=== PATIENT | male | born 1975 | race Caucasian/White ===

== ENCOUNTER → 2017-06-17 | Outpatient (CLI) | payer BC ==
[~2017-06-17] MED LIST: CIPR-255 PO; IBUP-1427 PO; LORA-741 PO; OXYC-643 PO; TEMA-79 PO
--- NOTE | 2017-06-24 08:38 | CODING QUERY MEDICAL NECESSITY ---
CQSUPPORTING DIAGNOSIS NEEDED A supporting diagnosis is required for the test/procedure performed on this patient in order for us to be reimbursed by the patient's insurance. Please provide a supporting diagnosis for the following test/procedure listed below next to the test name along with your signature. *If there is no additional diagnosis for this patient that would support the following test/procedure please document that below next to the test/procedure. Test(s)/Procedure(s) that require a supporting diagnosis: DOS 06/17/17 VITAMIN D TEST Provider Signature: Date: Thank you Adwoa Carrizales Health Information Management Once completed, please kindly fax back to [phone] For questions please call [phone]
== END | disposition home or self-care (01) ==
LOC: C.LABPVFM 12:24
PROVIDERS: ATTEND Nurse Practitioner
DX: R40.0 Somnolence (principal); E55.9 Vitamin D deficiency, unspecified

== ENCOUNTER → 2017-07-15 | Outpatient (CLI) | payer BC ==
[~2017-07-15] VITALS: Ht 175.3 cm; Wt 129.3 kg
[2017-07-15 09:40] VITALS: BP 146/99; PULSE 71; Ht 175.3 cm; Wt 129.3 kg
== END | disposition home or self-care (01) ==
LOC: C.NEUR 08:43
PROVIDERS: ATTEND Internal Medicine Pulmonary Disease
DX: G47.33 Obstructive sleep apnea (adult) (pediatric) (principal); F32.9 Major depressive disorder, single episode, unspecified; F41.9 Anxiety disorder, unspecified; R40.0 Somnolence; G47.00 Insomnia, unspecified; E55.9 Vitamin D deficiency, unspecified; Z87.891 Personal history of nicotine dependence

== ENCOUNTER → 2017-10-14 | Outpatient (CLI) | payer BC ==
[~2017-10-14] VITALS: Ht 175.3 cm; Wt 129.5 kg
[2017-10-14 08:36] VITALS: BP 141/86; PULSE 79; Ht 175.3 cm; Wt 129.5 kg
== END | disposition home or self-care (01) ==
LOC: C.NEUR 08:00
PROVIDERS: ATTEND Internal Medicine Pulmonary Disease
DX: G47.33 Obstructive sleep apnea (adult) (pediatric) (principal)

== ENCOUNTER 2023-04-05 13:54 | Inpatient (IN) ==
--- NOTE | 2023-04-05 14:07 | ED Triage Note ---
Date of Service April 05, 2023 History of Present Illness This patient was briefly evaluated while in triage. An abbreviated physical exam was performed. This patient is a 47-year-old Male who returns to the ED for evaluation of ongoing lower back pain radiating into the left leg to the foot. The patient is scheduled for 04/23 for injections in his back by Dr. Kendrick in [place]. Patient denies any bladder/bowel incontinence, saddle anesthesias or foot drop. The patient rates his discomfort 10 out of 10. The patient has been taking gabapentin, Motrin and Tylenol without relief. Physical Exam CONSTITUTIONAL: Healthy and well nourished. Patient appears in moderate discomfort. MUSCULOSKELETAL: Patient has generalized tenderness to palpation through the lower lumbar spine and into the left sciatic notch/SI joint. Patient ambulates with an antalgic gait. PSYCHIATRIC: Positive affect. Initial orders for labs and / or imaging were placed and patient was placed in the waiting area until a bed is available. Please see further documentation for the full ED course.
--- NOTE | 2023-04-05 14:34 | Emergency Department Note ---
Impression & Plan Acute left lumbar radiculopathy, Intractable low back pain ED Provider Note CHIEF COMPLAINT: Uncontrolled low back pain radiating into the leg x3 months HISTORY OF PRESENT ILLNESS: Patient is a 47-year-old male with past medical history significant for chronic low back pain and sleep apnea, who returns the emergency department for continued and worsening radicular low back pain. Patient has a history of chronic low back pain. He has been experiencing an exacerbation of his low back pain over the last 3 months. He has been seen by his primary care provider for this on several occasions. He had an MRI in December of this year noting left lateral disc bulge at the L4-L5 level with impingement of the L4 nerve root. He has been in physical therapy. He has been trialed on multiple medications including narcotics, muscle relaxers, gabapentin and steroids has been seen by pain management, Dr. Kendrick, in [place], and has had some trigger point injections in the thoracic spine. He is scheduled for an DAVID but not until 04/23. He has been getting worse over the last 1 to 2 weeks and even more so in the last few days. It is to the point now that he cannot walk. He rates his pain a 9/10. He was seen and thoroughly evaluated in our emergency department yesterday evening. He was discharged at 1999. He states that he felt fine at discharge because the pain medications were still working but when they wore off his pain was back to where it was. He states the pain is located in the left low back, radiating into the buttocks, around to the lateral aspect of the hip and down the left leg into his calf. It does not go into the foot currently. He reports weakness in the leg and a sense of buckling. He denies any bowel or bladder incontinence or saddle anesthesias. He tried getting in with pain management sooner, but has been unsuccessful. REVIEW OF SYSTEMS: Review of systems as per HPI. All other systems reviewed were negative. 10 systems reviewed. PMH: External medical records are reviewed and summarized as above/below. See Problem List. SOCIAL HISTORY: Patient lives at home. Employed. PHYSICAL EXAM: Vital Signs: Reviewed Nurse's notes. CONSTITUTIONAL: Patient is an uncomfortable appearing 47-year-old male who is awake and alert and sitting gingerly on the edge of the gurney. There is moderate discomfort with position changes. CARDIOVASCULAR: Regular rate and rhythm. Peripheral pulses easily palpable. RESPIRATORY: Breath sounds equal and clear to auscultation. ABDOMEN: Bowel sounds are present. Abdomen is soft, nontender and nondistended. INTEGUMENTARY: No lesions or rash, normal skin turgor. LYMPH: No lymphadenopathy. SPINE: Examination of the patient's back does not demonstrate any ecchymosis, abrasions or outward signs of trauma. No erythema, increased warmth or induration. Patient has midline discomfort to palpation over the low lumbar spine, primarily on the left extending out the PSIS on the left and into the left buttock. There is no pain over the SI joint or the sciatic notch. He has increased pain with range of motion including rotation and flexion. EXTREMITIES: Leg lengths are symmetrical. Negative logroll bilaterally. He has 4/5 strength to plantarflexion of the left toe and ankle compared to 5/5 on the right. 5/5 strength of dorsi-flexion of the great toes and ankles and flexion and extension of the knees and flexion of the hips. Positive left-sided straight leg raise testing. Lower extremity DTRs are 1+ bilaterally. Distal pulses are easily palpable. Sensation light touch is intact over the lower extremities bilaterally. EMERGENCY DEPARTMENT COURSE: The patient was seen and assessed as above. External medical records were reviewed. Patient returns the emergency department for uncontrolled radicular left low back pain. He has an MRI documenting nerve root impingement in the L4 level. When he was seen in the ED yesterday, he was offered admission for evaluation and inpatient care versus a trial of home and he elected the latter. He has not even made a 24 hours and is now back in the emergency department. Of note, he was not prescribed any pain medication or steroids at discharge yesterday. Patient and his significant other feel that he cannot manage at home and he was now like to consider being evaluated as an inpatient. IV lock was initiated. Patient's blood work from yesterday was reviewed as well as CT scan imaging and MRI from December. The patient's outside pain management notes were also reviewed. He was treated with IV Toradol, Zofran and morphine x2 doses. Consultation was placed for admission/observation for further care of his pain. The patient was discussed with Dr. Valdovinos with the [facility]. They will evaluate the patient. Past Med/Surg History Medical History GERD (gastroesophageal reflux disease) Osteoarthritis Sleep apnea currently not using CPAP as ordered Spider bite Surgical History History of tonsillectomy History of umbilical hernia repair Family History Grandmother Family history of diabetes mellitus Social History Smoking Status: Former smoker Tobacco Type: Smokeless Tobacco (Dip or Chew) Second Hand Exposure: Yes (father smoked); Do You Dip or Chew Tobacco: Yes; Hx Alcohol Use: Yes Alcohol type: beer, wine and hard liquor Hx Substance Use: No Preferred Language: Italian Communication Ability: Effective Sap Abap Developer Required: No Beliefs That Will Affect Care: None marital status: Single Current Living Situation: Significant Other current occupational status: employed How many Children do You have: 0 Feels Safe at Home: Yes Childhood Exposure to Second-Hand Smoke: Yes Diet: regular caffeine: Yes Physical Activity Frequency: Daily Seatbelt Use: always Sunscreen Use: No Assistive Devices: CPAP and Glasses Allergies Allergies Allergy/AdvReac Type Severity Reaction Status Date / Time No Known Allergies Allergy Verified 04/05/23 16:27 Home Meds Home Medications Medication Instructions Recorded Confirmed lidocaine 5 % topical patch 1 patch topical DAILY PRN Pain 01/08/23 04/05/23 diazepam 10 mg tablet See Rx Instructions .Route 04/04/23 04/05/23 .COMPLEX PRN 1 HR. PRIOR TO DOCTOR OFFICE VISIT gabapentin 100 mg capsule 200 mg PO BID 04/04/23 04/05/23 naproxen sodium 220 mg tablet 440 mg PO Q8H 04/05/23 04/05/23 (Aleve) tizanidine 4 mg tablet 4 mg PO Q6H PRN MUSCLE SPASMS 04/05/23 04/05/23 Results & Data (ED) Vital Signs Vital Signs - 24 hr 04/05/23 14:03 04/05/23 14:56 Temperature 36.8 C Temperature Source Temporal Artery Scan Pulse Rate 98 H Pulse Rate [Right Apical] 92 H Respiratory Rate 18 18 Respiratory Effort / Characteristics Non-Labored Spontaneous Respiratory Depth Normal Respiratory Pattern Regular Blood Pressure 146/63 H Blood Pressure [Left Arm] 146/86 H Blood Pressure Mean 90 Blood Pressure Mean [Left Arm] 106 Pulse Oximetry 97 96 Oxygen Delivery Method Room Air Room Air Sepsis Recent Fever Within 48 Hours No Sepsis New/Unexplained Change in Mental Status No Sepsis Action Taken by Nursing No Action Required Home Medications Current Medication List: was personally reviewed by me Laboratory Data Attestation: I reviewed the patient's lab results. Lab Results 04/05/23 Range/Units 14:49 SARS-CoV-2, RNA, NAAT NEGATIVE (NEGATIVE) Administered Medications Discontinued Medications Ketorolac Tromethamine (Ketorolac Tromethamine 15 Mg/Ml Vial) 15 mg IV NOW STA Stop: 04/05/23 14:39 Last Admin: 04/05/23 15:45 Dose: 15 mg Documented By: DANITA Morphine Sulfate (Morphine Sulfate 4 Mg/Ml 1 Ml Carp\Vial) 4 mg IV NOW STA Stop: 04/05/23 14:39 Last Admin: 04/05/23 15:45 Dose: 4 mg Documented By: DANITA Morphine Sulfate (Morphine Sulfate 10 Mg/Ml Carp/Vial) 6 mg IV NOW STA Stop: 04/05/23 15:52 Last Admin: 04/05/23 16:04 Dose: 6 mg Documented By: DANITA Morphine Sulfate (Morphine Sulfate 4 Mg/Ml 1 Ml Carp\Vial) Confirm Administered Dose 4 mg .ROUTE .STK-MED ONE Stop: 04/05/23 16:01 Last Admin: 04/05/23 16:04 Dose: Not Given Documented By: DANITA Morphine Sulfate (Morphine Sulfate 2 Mg/Ml Carp) Confirm Administered Dose 2 mg .ROUTE .STK-MED ONE Stop: 04/05/23 16:01 Last Admin: 04/05/23 16:05 Dose: Not Given Documented By: DANITA Ondansetron HCl (Ondansetron Inj 2 Mg/Ml 2 Ml Vial) 4 mg IV NOW STA Stop: 04/05/23 14:39 Last Admin: 04/05/23 15:45 Dose: 4 mg Documented By: DANITA Prescription Drug Monitoring [place] Drug Monitoring Program reviewed and no issues identified Discharge Plan Visit Data Chief Complaint: Back Injury/Pain Stated Complaint: LOWER BACK INTO LEG PAIN ED Provider: Guillermo Nicole ED Midlevel Provider: Sriram Perez Discharge Problem: Acute left lumbar radiculopathy, Intractable low back pain Patient Disposition: Being Evaluated by Hospitalist Forms Stand Alone Forms: My [facility] Prescriptions Prescriptions: No Action lidocaine 5 % adhesive patch,medicated 1 patch topical DAILY PRN (Reason: Pain) Rx Instructions: leave on most painful area for up to 12 hrs gabapentin 100 mg capsule 200 mg PO BID diazepam 10 mg tablet See Rx Instructions .ROUTE .COMPLEX PRN (Reason: 1 HR. PRIOR TO DOCTOR OFFICE VISIT) Rx Instructions: Take 1 tablet by mouth 1 hour prior to procedure. tizanidine 4 mg tablet 4 mg PO Q6H PRN (Reason: MUSCLE SPASMS) naproxen sodium [Aleve] 220 mg Tablet 440 mg PO Q8H Referrals Referrals: Che Petersen CRNP [Primary Care Provider] -
[2023-04-05] MEDS ORDERED: MoRPHine SULFATE 4 MG/ML 1 ML CARP\\VIAL IV STA (14:38)
[2023-04-05] MEDS ORDERED: ONDANSETRON INJ 2 MG/ML 2 ML VIAL IV STA (14:38)
[2023-04-05] MEDS ORDERED: KETOROLAC TROMETHAMINE 15 MG/ML VIAL IV STA (14:38)
[2023-04-05] MEDS ORDERED: MoRPHine SULFATE 10 MG/ML CARP/VIAL IV STA (15:51)
[2023-04-05] MEDS ORDERED: MoRPHine SULFATE 2 MG/ML CARP ONE (16:00)
[2023-04-05] MEDS ORDERED: MoRPHine SULFATE 4 MG/ML 1 ML CARP\\VIAL ONE (16:00)
--- NOTE | 2023-04-05 17:08 | History & Physical Report ---
Date of Service April 05, 2023 Assessment & Plan (1) Lumbar radiculopathy: Plan: Acetaminophen 1g PO TID. Toradol 30mg IV q6h (for 2 days). oxycodone 1st line, morphine 2nd line for breakthrough pain. Gabapentin 300mg TID. Could consider short course of steroids but given he is now having weakness he is potentially a surgical candidate therefore steroids deferred Discussed with Dr Acosta - requested up to date MRI and will review patient tomorrow. Will keep NPO after midnight with the slim chance he may need surgery tomorrow. (2) Sleep apnea: Plan: Intolerant to CPAP Plan VTE Prophyaxis - low risk Diet - regular, NPO after midnight Disposition - observation status to med/surg Admission and Anticipated Discharge Date Admission Date: April 05, 2023 History of Present Illness Chief Complaint: Back pain Primary Care Provider: DEE DEE Simms Ezekiel Lomeli is a 47 year old male who presents to the ER with low back back radiating down left leg. Initial injury occurred about 2 months ago after picking up a log while his foot was stuck in a hole and twisted. Initially he just had pain in his back but over the last week and much more over the last three days it has been radiating down his left leg and much more severe. He has continued to work and is on concrete a lot during the day. Now having difficulty walking due to the pain. Current severity 9/10. Radiates down left thigh, then lateral calf down to ankle. Worse on standing up. He has a pain management appointment on April 23. Stopped taking Aleve on Wednesday as he was told he was going to get steroids that were never called in. Had Solu-medrol yesterday however in the ER. Continues with lidocaine patch and gabapentin. After coming ot the ER yesterday he felt better until this morning when all the pain medication wore off and he was unable to get out of bed therefore returned to the ER today. Allergies Allergy/AdvReac Type Severity Reaction Status Date / Time No Known Allergies Allergy Verified 04/05/23 16:27 Home Medications Medication Instructions Recorded Confirmed Type lidocaine 5 % topical patch 1 patch topical DAILY PRN Pain 01/08/23 04/05/23 History diazepam 10 mg tablet See Rx Instructions .Route 04/04/23 04/05/23 History .COMPLEX PRN 1 HR. PRIOR TO DOCTOR OFFICE VISIT gabapentin 100 mg capsule 200 mg PO BID 04/04/23 04/05/23 History naproxen sodium 220 mg tablet 440 mg PO Q8H 04/05/23 04/05/23 History (Aleve) tizanidine 4 mg tablet 4 mg PO Q6H PRN MUSCLE SPASMS 04/05/23 04/05/23 History Past Med/Surg History Medical History GERD (gastroesophageal reflux disease) Osteoarthritis Sleep apnea currently not using CPAP as ordered Spider bite Surgical History History of tonsillectomy History of umbilical hernia repair Family History Grandmother Family history of diabetes mellitus maternal Social History Smoking Status: Former smoker Tobacco Type: Smokeless Tobacco (Dip or Chew) Second Hand Exposure: Yes (father smoked); Do You Dip or Chew Tobacco: Yes; Hx Alcohol Use: Yes Alcohol type: beer, wine and hard liquor Hx Substance Use: No Preferred Language: Japanese Communication Ability: Effective [employer] Product Consultant Required: No Beliefs That Will Affect Care: None marital status: Single Current Living Situation: Significant Other current occupational status: employed How many Children do You have: 0 Feels Safe at Home: Yes Childhood Exposure to Second-Hand Smoke: Yes Diet: regular caffeine: Yes Physical Activity Frequency: Daily Seatbelt Use: always Sunscreen Use: No Assistive Devices: CPAP and Glasses Review of Systems Review of Systems: All systems reviewed & are unremarkable except as noted in HPI & below Physical Exam Constitutional: WD/WN, vitals as above Eyes: + anicteric sclerae; normal pupil size ENMT: external ear and nose normal, oropharynx normal Neck: trachea midline, no thyromegaly Respiratory: normal respiratory effort, lungs clear to auscultation Cardiovascular: RRR, no murmur, no edema Gastrointestinal (Abdomen): normal bowel sounds, soft, nontender, no hepatosplenomegaly Skin: no rashes, warm and dry Neurologic: moves all extremities, + focal motor deficit (see below) and awake; not confused Motor/Sensory: no sensory deficit No right lower extremity weakness 5/5 throughout Left hip flex limited by pain, knee flex/ext limited by pain, left ankle dorsiflex 4/5, plantarflex 4+/5 Knee reflex unable to illicit b/l Psychiatric: A+Ox3, euthymic affect Results & Data Results & Data Vital Signs (Past 12 Hours) Vital Signs Temp Pulse Pulse Resp BP BP Pulse Ox 04/05/23 14:56 92 H 18 146/86 H 96 04/05/23 14:03 36.8 C 98 H 18 146/63 H 97 O2 Del Method 04/05/23 14:56 Room Air 04/05/23 14:03 Room Air Laboratory Results None Diagnostic Findings None Medications Administered ER Medications Given: Toradol 15mg IV Morphine 4mg IV Ondansetron 4mg IV Morphine 6mg IV Code Status & VTE Plan Code Status Full PG Care Time/CCT Total # of Minutes Spent Total Time Spent with Patient: Total time spent is greater than 50% in coordination of care (as documented) at patient's floor/unit and/or counseling patient: Coding Level of Care Code 13116 INT INP/OBS CARE 2/55MIN Diagnoses Lumbar radiculopathy M54.16 Sleep apnea G47.30
[2023-04-05] MEDS ORDERED: ACETAMINOPHEN 500 MG TAB PO STA (17:25)
[2023-04-05 17:36] LABS: Basophils # (auto) 0.02 K/uL (0-0.2); Basophils % (auto) 0.1 %; Eosinophils # (auto) 0.03 K/uL (0-0.50); Eosinophils % (auto) 0.2 %; Hemoglobin 14.3 g/dl (14.0-18.0); Immature Granulocytes # (auto) 0.06 K/uL (0.01-0.20); Immature Granulocytes % (auto) 0.3 %; Lymphocytes # (auto) 2.11 K/uL (1.2-3.4); Lymphocytes % (auto) 10.7 %; Mean Corpuscular Hemoglobin 31.7 pg (25.0-34.0); Mean Corpuscular Hgb Conc 34.9 g/dL (32.0-36.0); Mean Corpuscular Volume 90.9 fL (80.0-100.0); Mean Platelet Volume 11.5 fL (9.4-12.4); Monocytes # (auto) 2.07 K/uL (0.11-0.59); Monocytes % (auto) 10.5 %; Neutrophils # (auto) 15.36 K/uL (1.40-6.50); Neutrophils % (auto) 78.2 %; Platelet Count 249 K/uL (130-400); RDW Coefficient of Variation 12.7 % (11.5-14.5); Red Blood Count 4.51 M/uL (4.70-6.10); White Blood Count 19.65 K/ul (4.8-10.8)
[2023-04-05 17:51] LABS: Calcium 9.4 mg/dl (8.6-10.3); Creatinine Clr Calc Pharmacy 115.9 ml/min; Est GFR (African American) 104.9 ml/min; Est GFR (Non-African American) 90.5 ml/min; Magnesium 1.9 mg/dl (1.7-2.4); Potassium 3.8 mmol/L (3.5-5.1)
[2023-04-05] MEDS: ACETAMINOPHEN 500 MG TAB PO SCH (19:49)
[2023-04-05] MEDS: oxyCODONE HCL IR 5 MG TAB (IMMEDIATE RELEASE) PO PRN (19:51)
--- NOTE | 2023-04-05 21:57 | Magnetic Resonance Report ---
Exam(s): MRI L SPINE Without Contrast EXAM: MR Lumbar Spine Without Intravenous Contrast CLINICAL HISTORY: Reason for exam: L4 radiculopathy, significantl worse since Dec MRI. TECHNIQUE: Magnetic resonance images of the lumbar spine without intravenous contrast in multiple planes. COMPARISON: 01/20/2023. FINDINGS: Vertebrae: The disc height throughout the lumbar vertebral bodies is well preserved. No acute fracture. Normal lumbar lordosis. Normal alignment of the lumbar vertebral bodies. Spinal cord: The spinal cord terminates at approximate T12-L1 with normal signal in the visualized portion. DISCS/SPINAL CANAL/NEURAL FORAMINA: T12-L1: Mild disc desiccation at T12-L1, L4-L5 and L5-S1. Narrowing of disc height at T12-L1. L1-L2: Unremarkable. No significant disc disease. No stenosis. L2-L3: Unremarkable. No significant disc disease. No stenosis. L3-L4: Unremarkable. No significant disc disease. No stenosis. L4-L5: Redemonstrated is focal disc bulge over the left intervertebral foramen and abutting the exiting left L4 nerve root. No spinal stenosis. L5-S1: Mild disc desiccation. No spinal stenosis. No focal disc bulge or herniation. IMPRESSION: 1. Redemonstrated is disc bulge over the left intervertebral foramina at L4-L5 abutting the exiting left L4 nerve root with possible impingement. 2. No spinal stenosis. Electronically signed by: Veena Fitzgerald MD 04/05/23 21:55 PM
[2023-04-05] MEDS: KETOROLAC 30 MG/ML VIAL IV SCH (22:33)
[2023-04-06] MEDS: oxyCODONE HCL IR 5 MG TAB (IMMEDIATE RELEASE) PO PRN ×2 (00:24→07:50)
[2023-04-06] MEDS: MELATONIN 3 MG TAB PO PRN ×2 (00:52→21:07)
[2023-04-06] MEDS: MoRPHine SULFATE 4 MG/ML 1 ML CARP\\VIAL IV PRN ×2 (01:51→21:08)
[2023-04-06] MEDS: LACTATED RINGER'S 1,000 ML IV SCH ×2 (01:51→10:26)
[2023-04-06] MEDS: KETOROLAC 30 MG/ML VIAL IV SCH ×4 (04:10→20:03)
[2023-04-06 07:49] LABS: Hematocrit (blood only) 39.4 % (42.0-52.0); Hemoglobin 13.4 g/dl (14.0-18.0); Mean Corpuscular Hemoglobin 31.1 pg (25.0-34.0); Mean Corpuscular Volume 91.4 fL (80.0-100.0); Mean Platelet Volume 11.7 fL (9.4-12.4); Platelet Count 221 K/uL (130-400); RDW Coefficient of Variation 13.2 % (11.5-14.5); RDW Standard Deviation 44.1 fL (36.4-46.3); Red Blood Count 4.31 M/uL (4.70-6.10); White Blood Count 11.36 K/ul (4.8-10.8)
[2023-04-06] MEDS: ACETAMINOPHEN 500 MG TAB PO SCH ×3 (07:49→20:03)
[2023-04-06 07:50] LABS: BUN Creatinine Ratio 18.2 (10-20); Calcium 8.5 mg/dl (8.6-10.3); Creatinine Clr Calc Pharmacy 117.1 ml/min; Est GFR (African American) 106.2 ml/min; Est GFR (Non-African American) 91.6 ml/min; Potassium 3.7 mmol/L (3.5-5.1)
[2023-04-06] MEDS: GABAPENTIN 300 MG CAP PO SCH ×3 (07:50→20:02)
--- NOTE | 2023-04-06 08:36 | Orthopedic Consultation ---
Date of Consultation April 06, 2023 Assessment & Plan (1) Lumbar disc herniation with radiculopathy: MRI lumbar spine from yesterday does continue to demonstrate L4-L5 foraminal disc herniation on the left. This is concordant with his symptom complex and presentation. At length discussion at today with the patient reviewing his MRI findings and clinical course. He is very concerned regarding his work status. He is limited with his ability continue physical therapy and ability to take time off of work. He does not have short-term disability. He would like to pursue injections if possible to allow him to return to work. He understands if these fail to provide any significant long-term relief we may have to revisit possible surgical intervention. At this point he would like to postpone surgery for as long as possible. We will ask interventional pain management to see him and hopefully perform an injection as soon as possible. History of Present Illness Reason for Consultation: Left leg pain and weakness Attending Physician: Edgar Samuels History of Present Illness This is a 47-year-old male has had significant back pain now rating to left lower extremity since December. He is undergone a course of physical therapy. He was scheduled for an epidural injection in late March. He presents yesterday with marked decline in status with worsening left leg pain and weakness. Describes the symptoms involving left buttock left posterior thigh radiating down to the knee and anterior tibia to the ankle. He states he is able to walk but is very painful. Is been unable to work. The right lower extremity is asymptomatic. Allergies Allergy/AdvReac Type Severity Reaction Status Date / Time No Known Allergies Allergy Verified 04/05/23 16:27 Home Medications Medication Instructions Recorded Confirmed Type lidocaine 5 % topical patch 1 patch topical DAILY PRN Pain 01/08/23 04/05/23 History diazepam 10 mg tablet See Rx Instructions .Route 04/04/23 04/05/23 History .COMPLEX PRN 1 HR. PRIOR TO DOCTOR OFFICE VISIT gabapentin 100 mg capsule 200 mg PO BID 04/04/23 04/05/23 History naproxen sodium 220 mg tablet 440 mg PO Q8H 04/05/23 04/05/23 History (Aleve) tizanidine 4 mg tablet 4 mg PO Q6H PRN MUSCLE SPASMS 04/05/23 04/05/23 History Patient History Medical History GERD (gastroesophageal reflux disease) Osteoarthritis Sleep apnea currently not using CPAP as ordered Spider bite Surgical History History of tonsillectomy History of umbilical hernia repair Family History Grandmother Family history of diabetes mellitus maternal Social History Smoking Status: Former smoker Tobacco Type: Smokeless Tobacco (Dip or Chew) Second Hand Exposure: Yes (father smoked); Do You Dip or Chew Tobacco: Yes; Hx Alcohol Use: Yes Alcohol type: beer, wine and hard liquor Hx Substance Use: No Preferred Language: German Communication Ability: Effective Water Service Dispatcher Required: No Beliefs That Will Affect Care: None marital status: Single Current Living Situation: Significant Other current occupational status: employed How many Children do You have: 0 Feels Safe at Home: Yes Childhood Exposure to Second-Hand Smoke: Yes Diet: regular caffeine: Yes Physical Activity Frequency: Daily Seatbelt Use: always Sunscreen Use: No Assistive Devices: CPAP and Glasses Physical Exam Physical Exam: On exam patient is lying in bed. He has evidence of a 5 or 5 right extensor hallucis longus dorsiflexion plantarflexion quadriceps. The left he has a 4/5 left dorsiflexion quadriceps. Sensory appears to be symmetric. Deep tendon reflexes are diminished. Results & Data Vital Signs (Past 12 Hours) Vital Signs Temp Pulse Resp BP Pulse Ox O2 Del Method 04/06/23 07:45 36.3 C L 62 18 116/75 94 Room Air 04/05/23 21:23 36.4 C L 75 18 155/91 H 95 Room Air
[2023-04-06] MEDS ORDERED: predniSONE 20 MG TAB PO STA (14:46)
--- NOTE | 2023-04-06 14:49 | Pain Management Consultation ---
Date of Consultation April 06, 2023 Assessment & Plan (1) Lumbar disc herniation with radiculopathy: Plan 1. Patient was given 40mg PO prednisone now. 2. Discussed discharge to home tomorrow. 3. Recommend discharge to home with Medrol Wei, Oxycodone. 4. We are able to accommodate a left L4-5 transforaminal epidural steroid injection on 04/14/23 at 1300 which is next available. 5. Continue gabapentin 300 mg 3 times daily. 6. Made aware that he cannot participate in two different pain management facilities doing injections on him. History of Present Illness Attending Physician: Edgar Samuels History of Present Illness Mr. Lomeli is a 47-year-old male with lumbar radiculopathy x2 months. Patient states that the pain started after he was picking up a log and his foot got stuck in a hole and twisted. The pain was primarily in the low back but over the last 3 days he has now developed radicular symptoms down the lateral aspect of the left leg. He describes an aching, sharp shooting pain to the ankle. Pain is aggravated with standing and walking, improved with sitting and lying supine. Pain is rated 2/10 at its best and 9/10 at its worst. He did try physical therapy, Tylenol, ibuprofen, ice, heat without improvement. He was in the emergency department on 04/04/2023 and subsequently admitted on another emergency visit on 06/05/2023. He states that the left leg is weaker than the right. He is currently receiving Toradol 30 mg every 6 hours, Tylenol 1 g 3 times daily, gabapentin 300 mg 3 times daily, oxycodone 10 mg every 4 hours, and IV morphine 4 mg if needed for breakthrough pain which she has required once last night. Patient has been working up with [facility] pain management and was to be scheduled for an injection on 04/23/2023. Patient has called into their office but that there is nothing further they can offer until the injection. No bowel/bladder incontinence, saddle anesthesia, foot drop. Case discussed with Dr. Zina Guadalupe Allergies Allergy/AdvReac Type Severity Reaction Status Date / Time No Known Allergies Allergy Verified 04/05/23 16:27 Home Medications Medication Instructions Recorded Confirmed Type lidocaine 5 % topical patch 1 patch topical DAILY PRN Pain 01/08/23 04/05/23 History diazepam 10 mg tablet See Rx Instructions .Route 04/04/23 04/05/23 History .COMPLEX PRN 1 HR. PRIOR TO DOCTOR OFFICE VISIT gabapentin 100 mg capsule 200 mg PO BID 04/04/23 04/05/23 History naproxen sodium 220 mg tablet 440 mg PO Q8H 04/05/23 04/05/23 History (Aleve) tizanidine 4 mg tablet 4 mg PO Q6H PRN MUSCLE SPASMS 04/05/23 04/05/23 History Patient History Medical History GERD (gastroesophageal reflux disease) Osteoarthritis Sleep apnea currently not using CPAP as ordered Spider bite Surgical History History of tonsillectomy History of umbilical hernia repair Family History Grandmother Family history of diabetes mellitus maternal Social History Smoking Status: Current every day smoker Tobacco Type: Smokeless Tobacco (Dip or Chew) Second Hand Exposure: Yes (father smoked); Do You Dip or Chew Tobacco: Yes; Hx Alcohol Use: Yes Alcohol type: beer, wine and hard liquor Hx Substance Use: No Preferred Language: Kosovan Communication Ability: Effective Certified Breastfeeding Educator Required: No Beliefs That Will Affect Care: None marital status: Single Current Living Situation: Significant Other current occupational status: employed How many Children do You have: 0 Feels Safe at Home: Yes Childhood Exposure to Second-Hand Smoke: Yes Diet: regular caffeine: Yes Physical Activity Frequency: Daily Seatbelt Use: always Sunscreen Use: No Assistive Devices: None Physical Exam Physical Exam: GENERAL: This is a 47 year old male that does not appear in any acute distress. Obese and physically deconditioned. HEAD/FACE: Normocephalic and atraumatic. EYES: No drainage or conjunctival injection. ENT: Nose without bleeding or discharge. Oral mucosa moist. RESPIRATORY: Patient with unlabored breathing. No signs of respiratory distress. CHEST/AXILLA: Chest movement symmetrical. No deformities noted. BACK: Full range of motion. There is focal tenderness along the left L4-L5 region. No SI joint tenderness. No myofascial spasm or trigger points noted. SKIN: [place], warm and dry. No rash noted. MS/EXTREMITY: 4/5 strength of the bilateral lower extremities. Positive straight leg raise on the left, negative on the right. NEURO: Alert and appears oriented. Speech is fluent. Cranial Nerves are grossly intact. PSYCH: Alert, pleasant, affect is calm Results (Pain Clinic) Diagnostic Review MRI Findings: Exam(s): MRI L SPINE Without Contrast EXAM: MR Lumbar Spine Without Intravenous Contrast CLINICAL HISTORY: Reason for exam: L4 radiculopathy, significantl worse since Dec MRI. TECHNIQUE: Magnetic resonance images of the lumbar spine without intravenous contrast in multiple planes. COMPARISON: 01/20/2023. FINDINGS: Vertebrae: The disc height throughout the lumbar vertebral bodies is well preserved. No acute fracture. Normal lumbar lordosis. Normal alignment of the lumbar vertebral bodies. Spinal cord: The spinal cord terminates at approximate T12-L1 with normal signal in the visualized portion. DISCS/SPINAL CANAL/NEURAL FORAMINA: T12-L1: Mild disc desiccation at T12-L1, L4-L5 and L5-S1. Narrowing of disc height at T12-L1. L1-L2: Unremarkable. No significant disc disease. No stenosis. L2-L3: Unremarkable. No significant disc disease. No stenosis. L3-L4: Unremarkable. No significant disc disease. No stenosis. L4-L5: Redemonstrated is focal disc bulge over the left intervertebral foramen and abutting the exiting left L4 nerve root. No spinal stenosis. L5-S1: Mild disc desiccation. No spinal stenosis. No focal disc bulge or herniation. IMPRESSION: 1. Redemonstrated is disc bulge over the left intervertebral foramina at L4-L5 abutting the exiting left L4 nerve root with possible impingement. 2. No spinal stenosis. Electronically signed by: Veena Fitzgerald MD 04/05/23 21:55 PM
--- NOTE | 2023-04-06 21:57 | Hospitalist Progress Note ---
Date of Service April 06, 2023 Assessment & Plan (1) Lumbar radiculopathy: Plan: Acetaminophen 1g PO TID. Toradol 30mg IV q6h (for 2 days). oxycodone 1st line, morphine 2nd line for breakthrough pain. Gabapentin 300mg TID. Could consider short course of steroids but given he is now having weakness he is potentially a surgical candidate therefore steroids deferred Discussed with Dr Acosta - patient does not want surgery as he has a disc herniaton that is causing his symptoms. Patient is interested in an injection and will consult pain management. (2) Sleep apnea: Plan: Intolerant to CPAP Plan VTE Prophyaxis - low risk Admission and Anticipated Discharge Date Admission Date: April 06, 2023 Subjective 47 yo male reports having pain in his back that radiates down his leg. He reports he does not want surgery as he does not want to be off work. He is asking for an injection. Review of Systems Review of Systems: All systems reviewed & are unremarkable except as noted in HPI & below Physical Exam Physical Exam: Constitutional: WD/WN, vitals as above Respiratory: normal respiratory effort, lungs clear to auscultation Cardiovascular: RRR, no murmur, no edema Gastrointestinal (Abdomen): normal bowel sounds, soft, nontender, no hepatosplenomegaly Skin: no rashes, warm and dry Neurologic: moves all extremities, + focal motor deficit (see below) and awake; not confused Motor/Sensory: no sensory deficit No right lower extremity weakness 5/5 throughout left ankle dorsiflex 4/5, plantarflex 4+/5 Psychiatric: A+Ox3, euthymic affect Results & Data Results & Data Vital Signs (Past 12 Hours) Vital Signs Temp Pulse Pulse Resp BP Pulse Ox O2 Del Method 04/06/23 19:58 36.8 C 74 16 137/89 96 Room Air 04/06/23 15:01 73 16 133/76 94 Room Air PG Care Time/CCT Total # of Minutes Spent Total Time Spent with Patient: Total time spent is greater than 50% in coordination of care (as documented) at patient's floor/unit and/or counseling patient: Coding Level of Care Code 49231 SUB INP/OBS CARE 2/35MIN Diagnoses Lumbar radiculopathy M54.16 Sleep apnea G47.30
[2023-04-07] MEDS: oxyCODONE HCL IR 5 MG TAB (IMMEDIATE RELEASE) PO PRN (02:15)
[2023-04-07] MEDS: KETOROLAC 30 MG/ML VIAL IV SCH ×3 (03:35→16:49)
[2023-04-07] MEDS ORDERED: POLYETHYLENE (MIRALAX) 17 GM PACK PO PRN (06:11)
[2023-04-07] MEDS ORDERED: DOCUSATE SODIUM/SENNA 50/8.6MG TAB PO PRN (06:11)
[2023-04-07] MEDS ORDERED: SOD PHOSPHATE/SOD BIPHOSPHATE ENEMA 132 ML BTL PR PRN (06:11)
[2023-04-07] MEDS ORDERED: GLYCERIN ADULT 12 SUPP/BOX SUPP PR PRN (06:11)
[2023-04-07] MEDS: ACETAMINOPHEN 500 MG TAB PO SCH ×2 (08:58→14:46)
[2023-04-07] MEDS: GABAPENTIN 300 MG CAP PO SCH ×2 (09:00→14:47)
[2023-04-07] MEDS ORDERED: predniSONE 20 MG TAB PO STA (14:29)
== END 2023-04-07 18:02 | disposition home or self-care (01) | DRG 552 ==
LOC: ED 13:54 → 3W 13:54 → SUATTDRO 17:36 → 3W 18:20

== ENCOUNTER 2023-06-09 08:13 | Inpatient (IN) ==
--- NOTE | 2023-05-26 13:17 | PAT Medication Instructions ---
Medication Instructions Date of Service May 26, 2023 Home Medications Medication Instructions Recorded lidocaine 5 % topical patch 1 patch topical DAILY PRN Pain #14 04/07/23 ea sennosides 8.6 mg-docusate sodium 1 tab PO QAM PRN constipation #30 04/07/23 50 mg tablet (Senokot-S) tabs gabapentin 300 mg capsule 900 mg PO TID #180 caps 04/30/23 oxycodone 5 mg tablet 5 - 10 mg PO Q6H PRN moderate pain 04/30/23 (scale score 5-6) #45 tabs Medication List: tizanidine 4 mg tablet 4 mg PO Q6H PRN MUSCLE SPASMS lidocaine 5 % topical patch 1 patch topical DAILY PRN Pain sennosides 8.6 mg-docusate sodium 50 mg tablet (Senokot-S) 1 tab PO QAM PRN constipation gabapentin 300 mg capsule 900 mg PO TID oxycodone 5 mg tablet 5 - 10 mg PO Q6H PRN moderate pain acetaminophen 500 mg tablet 1,000 mg PO Q6H PRN Pain MEDICATION INSTRUCTIONS: Continue as directed lidocaine 5 % topical patch 1 patch topical DAILY PRN Pain (do not apply near surgical area or after bathing prior to surgery) DO NOT take the morning of surgery tizanidine 4 mg tablet 4 mg PO Q6H PRN MUSCLE SPASMS sennosides 8.6 mg-docusate sodium 50 mg tablet (Senokot-S) 1 tab PO QAM PRN constipation Take morning of surgery With a small sip of water, OTHERWISE NOTHING TO EAT OR DRINK AFTER MIDNIGHT: oxycodone 5 mg tablet 5 - 10 mg PO Q6H PRN moderate pain (if needed) acetaminophen 500 mg tablet 1,000 mg PO Q6H PRN Pain (if needed) gabapentin 300 mg capsule 900 mg PO TID Take evening before surgery oxycodone 5 mg tablet 5 - 10 mg PO Q6H PRN moderate pain (if needed) acetaminophen 500 mg tablet 1,000 mg PO Q6H PRN Pain (if needed) gabapentin 300 mg capsule 900 mg PO TID tizanidine 4 mg tablet 4 mg PO Q6H PRN MUSCLE SPASMS Other Notes If you have any questions please call us at [phone] or [phone] or [phone] or [phone]
--- NOTE | 2023-05-27 13:08 | Anesthesiology Consultation ---
Date of Service May 27, 2023 Assessment & Plan (1) Encounter for pre-operative examination: - awaiting surgeon ordered medical clearance, per Diana with surgeon's office she will be scheduling this with PCP once schedule is open next week. - facial hair: pt was advised/requested to shave or trim facial hair. He is hesitant, states he will consider this and is aware trimming facial hair may be required by assigned anesthesiologist DOS. Chart Review Chart Review: Pending: Refer to Additional Notes / Consult section and Patient seen in Pre Admission Testing Teaching & Discussion Pre-Anesthesia Teaching/Discussion Notes: Instructed NPO after midnight before surgery, except medications with 15 cc of water. Medication instructions provided according to the PAT guidelines. History Surgery Operation Date: 06/09/23 10:55 Proposed Procedures p L4-L5 Decompression and Fusion, Spinal Cord Monitoring - Matty Acosta DO Height/Weight Height: 5 ft 9 in Weight: 121.2 kg Allergies Allergy/AdvReac Type Severity Reaction Status Date / Time No Known Allergies Allergy Verified 05/26/23 08:41 Medications Home Medications Medication Instructions Recorded Confirmed Last Taken tizanidine 4 mg tablet 4 mg PO Q6H PRN MUSCLE SPASMS 04/05/23 05/26/23 Unknown lidocaine 5 % topical patch 1 patch topical DAILY PRN Pain #14 04/07/23 05/26/23 Unknown ea sennosides 8.6 mg-docusate sodium 1 tab PO QAM PRN constipation #30 04/07/23 05/26/23 Unknown 50 mg tablet (Senokot-S) tabs gabapentin 300 mg capsule 900 mg PO TID #180 caps 04/30/23 05/26/23 Unknown oxycodone 5 mg tablet 5 - 10 mg PO Q6H PRN moderate pain 04/30/23 05/26/23 Unknown (scale score 5-6) #45 tabs acetaminophen 500 mg tablet 1,000 mg PO Q6H PRN Pain 05/26/23 05/26/23 Unknown Past Medical History Medical History GERD (gastroesophageal reflux disease) controlled, stable per pt Hx of chest pain ~08/2022, had chest pain while at work, PCP ordered cardiac testing>"no findings, think it may have been from the lifting I do while at work" pt reports occasional additional episodes since work-up Lumbar disc herniation with radiculopathy LEFT L4-5 foraminal Sleep apnea currently not using CPAP as ordered, "recalled" Patient denies h/o stroke, seizures, heart attack, heart failure, DM, HTN, blood clots or blood transfusions. Exercise / Class Metabolic Activity II 4-5 Yardwork/Stairs/Walk up hill (denies chest discomfort or shortness of breath with 1 FOS) Past Family History Family History Grandmother Family history of diabetes mellitus maternal Grandfather Coronary heart disease Cancer Father Coronary heart disease Cancer lung CA, tobacco use Uncle Coronary heart disease Past Surgical History Surgical History History of tonsillectomy History of umbilical hernia repair Hx of colonoscopy Past Anesthesia History No Hx of Anesthesia Complications and No Family Hx of Anesthesia Complications History of PONV No Hx of PONV and No Hx of Motion Sickness Social History Smoking Status: Former smoker tobacco type: smokeless tobacco Do You Dip or Chew Tobacco: Yes (1-2 cans/day; advised) Smoking End Date: 10 years ago Hx Alcohol Use: Yes Alcohol type: beer, wine and hard liquor alcohol intake frequency: holidays/special occasions only Alcohol Intake Frequency Comment: "used to be an alcoholic, but only drinks occasionally now" Hx Substance Use: Yes substance use type: former substance user and marijuana Last Used Substance Other:: many years ago Review of Systems Patient denies chest pain, shortness of breath, dyspnea on exertion, fever, chills, cough, wheezing, or palpitations. Physical Exam Vital Signs Vitals BP 124/87 P 77 TEMP 97.9 SP02 97% on RA RESP 18 Physical Full cervical extension range of motion without pain TMD 3.5 finger breadths Mallampati Score 2 Dentition: several caps/crowns; denies chipped or loose teeth, implants or bridges Lungs: normal respiratory effort. Good air movement, clear throughout to auscultation, no adventitious breath sounds Cardiac: regular rate and rhythm, no murmurs noted Carotid arteries: negative bruit bilat Lab Results Anesthesia Preop Results Results Anesthesia Widget: WBC 7.60 K/ul (4.8-10.8) 05/27/23 Hgb 15.2 g/dl (14.0-18.0) 05/27/23 Hct 43.4 % (42.0-52.0) 05/27/23 Plt 234 K/uL (130-400) 05/27/23 Na 136 mmol/L (136-145) 05/27/23 K 3.8 mmol/L (3.5-5.1) 05/27/23 Cl 102 mmol/L (98-107) 05/27/23 CO2 26 mmol/L (21-32) 05/27/23 BUN 11 mg/dl (6-23) 05/27/23 Creat 1.06 mg/dl (0.6-1.4) 05/27/23 Glucose Level 97 mg/dl (70-99(Fasting)) 05/27/23 PT 11.0 Seconds (9.0-12.0) 05/27/23 PTT 27.3 Seconds (21.0-31.0) 05/27/23 INR 1.0 (0.9-1.1) 05/27/23 Urine Color Yellow 05/27/23 Urine Appearance Clear (Clear) 05/27/23 Urine pH 6.5 (4.5-7.5) 05/27/23 Urine Specific [place] 1.017 (1.000-1.030) 05/27/23 Urine Protein Negative (Negative) 05/27/23 Urine Glucose (UA) Negative (Negative) 05/27/23 Urine Ketones Negative (Negative) 05/27/23 Urine Blood Negative (Negative) 05/27/23 Urine Nitrite Negative (Negative) 05/27/23 Urine Bilirubin Negative (Negative) 05/27/23 Urine Urobilinogen Negative (Negative) 05/27/23 Urine Leukocyte Esterase Negative (Negative) 05/27/23 SARS-CoV-2, RNA, NAAT NEGATIVE (NEGATIVE) 04/05/23 Blood Type O Negative 05/27/23 Antibody Screen NEGATIVE 05/27/23 Testing Electrocardiogram Date: 09/23/22 NSR, rate 79 bpm Incomplete RBBB Chest X-Ray Date: 05/27/23 No acute chest disease Stress Test Date: 10/13/22 METS 4.6 Nondiagnostic stress echo for ischemia, target HR was not attained No ischemic changes noted at MPHR 73% Technically difficult study EF 60-65% No regional wall motion abnormalities No LVH No significant valvular abnormalities COVID-19 Risk Screen Screening Information COVID-19 Screen Date: 05/27/23 Exposure 21 Days Family/Household +COVID Last 21 Days: No Exposure 10 Days Any COVID Exposure Last 10 Days: No Symptoms Last 10 Days Experienced COVID Sx Last 10 Days: No + COVID 0-90 Days COVID + in Last 0-90 Days: No
[~2023-06-09 08:13] MED LIST changes: +ACETAMINOPHEN 500 MG TAB PO SCH; -CIPR-255 PO; +CeleBREX 200 MG CAP PO SCH; +GABAPENTIN 900 MG DOSE PO SCH; -IBUP-1427 PO; -LORA-741 PO; +LR 15ML/HR IV SCH; +LR 60ML/HR IV SCH; -OXYC-643 PO; -TEMA-79 PO; +[UNRECOGNIZED DRUG - REMARK] SCH
[2023-06-09] MEDS ORDERED: MIDAZOLAM HCL 1 MG/ML 2ML VIAL ONE (09:18)
[2023-06-09] MEDS ORDERED: ONDANSETRON INJ 2 MG/ML 2 ML VIAL ONE (09:18)
[2023-06-09] MEDS ORDERED: LIDOCAINE 2% 2 ML VIAL/AMP(20MG/ML) INFIL ONE (09:18)
[2023-06-09] MEDS ORDERED: fentaNYL citrate PF 100 MCG/2 ML VIAL ONE (09:18)
[2023-06-09] MEDS ORDERED: ROCURONIUM BROMIDE 10 MG/ML 5 ML VIAL IV ONE ×6 (09:18→11:55)
[2023-06-09] MEDS ORDERED: PROPOFOL IV EMULSION 10 MG/ML 20 ML VIAL IV ONE (09:18)
[2023-06-09] MEDS ORDERED: ePHEDrine sulfate 50 MG/ML AMP IV PRN (09:40)
[2023-06-09] MEDS ORDERED: HYDROmorphone INJ 2 MG/ML SYR/VIAL IV PRN (09:40)
[2023-06-09] MEDS ORDERED: ATROPINE SULFATE 0.1 MG/ML 10ML SYR IV PRN (09:40)
[2023-06-09] MEDS ORDERED: PROMETHAZINE HCL 12.5 MG in SODIUM CHLORIDE 0.9% 50 ML IV PRN ×2 (09:40→13:47)
[2023-06-09] MEDS ORDERED: ONDANSETRON INJ 2 MG/ML 2 ML VIAL IV PRN ×2 (09:40→13:47)
[2023-06-09] MEDS ORDERED: DEXAMETHASONE SOD INJ 4 MG/ML VIAL ONE (09:51)
[2023-06-09] MEDS ORDERED: SUGAMMADEX SODIUM 200 MG/2 ML VIAL IV ONE ×2 (09:56→12:01)
--- NOTE | 2023-06-09 10:03 | History & Physical Bridge Note ---
Date of Service June 09, 2023 History & Physical Bridge Note I have examined the patient, reviewed the History & Physical and in the interval since the performance of the History & Physical I have noted the following changes of clinical significance: no changes noted
--- NOTE | 2023-06-09 10:04 | History & Physical Report ---
Date of Service June 09, 2023 Assessment & Plan (1) Lumbar disc herniation with radiculopathy: Plan: Lumbar decompression fusion L4-L5 History of Present Illness Chief Complaint: Back and leg pain Primary Care Provider: DEE DEE Simms This is a 47-year-old male who presents with chronic persistent back and leg pain and failing course of nonoperative care is here for surgical invention. Allergies Allergy/AdvReac Type Severity Reaction Status Date / Time No Known Allergies Allergy Verified 06/09/23 08:39 Home Medications Medication Instructions Recorded Confirmed Type tizanidine 4 mg tablet 4 mg PO Q6H PRN MUSCLE SPASMS 04/05/23 06/09/23 History lidocaine 5 % topical patch 1 patch topical DAILY PRN Pain #14 04/07/23 06/09/23 Rx ea sennosides 8.6 mg-docusate sodium 1 tab PO QAM PRN constipation #30 04/07/23 06/09/23 Rx 50 mg tablet (Senokot-S) tabs gabapentin 300 mg capsule 900 mg PO TID #180 caps 04/30/23 06/09/23 Rx oxycodone 5 mg tablet 5 - 10 mg PO Q6H PRN moderate pain 04/30/23 06/09/23 Rx (scale score 5-6) #45 tabs acetaminophen 500 mg tablet 1,000 mg PO Q6H PRN Pain 05/26/23 06/09/23 History Past Med/Surg History Medical History GERD (gastroesophageal reflux disease) controlled, stable per pt Hx of chest pain ~08/2022, had chest pain while at work, PCP ordered cardiac testing>"no findings, think it may have been from the lifting I do while at work" pt reports occasional additional episodes since work-up Lumbar disc herniation with radiculopathy LEFT L4-5 foraminal Sleep apnea currently not using CPAP as ordered, "recalled" Surgical History History of tonsillectomy History of umbilical hernia repair Hx of colonoscopy Family History Grandmother Family history of diabetes mellitus maternal Grandfather Coronary heart disease Cancer Father Coronary heart disease Cancer lung CA, tobacco use Uncle Coronary heart disease Social History Smoking Status: Former smoker Tobacco Type: Smokeless Tobacco (Dip or Chew) Smoking End Date: 10 years ago; Second Hand Exposure: Yes (hx growing up); Do You Dip or Chew Tobacco: Yes (1-2 cans/day; advised); Tobacco Cessation Education Requested by Patient: No Hx Alcohol Use: Yes Alcohol type: beer, wine and hard liquor Hx Substance Use: Yes Last Used Substance Other:: many years ago Preferred Language: Greek Communication Ability: Effective Cte Teacher Required: No Beliefs That Will Affect Care: None marital status: Single Current Living Situation: Family and Significant Other current occupational status: employed current occupation: powder coating How many Children do You have: 0 Other Information That Helps Us Care for You: No Feels Safe at Home: Yes Safety Concerns: Feels Safe At This Time Childhood Exposure to Second-Hand Smoke: Yes Diet: regular caffeine: Yes Physical Activity Frequency: Daily Seatbelt Use: always Sunscreen Use: No Assistive Devices: Glasses and Other Assistive Devices Comment: walking stick Physical Exam Physical Exam: Patient is alert and oriented Heart regular rhythm Lungs clear Results & Data Results & Data Vital Signs (Past 12 Hours) Vital Signs Temp Pulse Resp BP Pulse Ox O2 Del Method 06/09/23 08:41 36.6 C 75 18 140/87 97 Room Air
[2023-06-09] MEDS ORDERED: ceFAZolin 330 MG/ML 1 GM VIAL ONE (10:24)
[2023-06-09] MEDS ORDERED: BUPIVACAINE/EPINEPHRINE 0.25% 1:200,000 30 ML VIAL ONE (10:24)
[2023-06-09] MEDS ORDERED: FLOSEAL HEMOSTATIC MATRIX 10ML TOP ONE (11:17)
--- NOTE | 2023-06-09 12:06 | Operative Report ---
Post Operative Report Pre & Post Diagnosis Operation Date: 06/09/23 09:55 Pre-Op Diagnosis: Lumbar disc herniation with radiculopathy Post-Op Diagnosis: Lumbar disc herniation with radiculopathy I identified the patient and participated in the time-out.: Yes Procedure Operation Date: 06/09/23 09:55 Actual Procedures 1. Lumbar decompression with bilaterally facetectomies and foraminotomies L4- L5. #2 posterior spinal fusion L4-5 per #3 placed posterior instrumentation L4- 5. #4 interbody fusion L4-5. #5 placement Spira 15 x 26 mm at L4-5. #6 place ment locally harvested morselized autograft in the posterior gutters. #7 placement of I factor in the body space and in the posterior lateral gutters. Surgeon Matty Acosta, DO Yard Hand Vashti Amin Estimated Blood Loss 350 Findings See Below The patient is 5 foot 9 weighing over 119 kg with a BMI of 39. Patient's body habitus did contribute to significant technical difficulty requiring her deepest retractors along instruments in order to perform this procedure. This at least 50% increased operative time. Specimens none Indications This is a 47-year-old male who presents above-mentioned diagnosis after failing since course of nonoperative care is here for surgical invention. Description of Procedure Patient was met with identified informed consent obtained. Patient was then taken to the operative suite underwent ablation placed in a prone position the Kimper table top Trevin frame. All bony promises well-padded eyes inspected to ensure no external pressure placed on the. This point lumbar spine was prepped and draped in a sterile fashion. Sharp dissection with the assistance of Bovie cautery to form down to and exposing the lamina transverse processes of L4-L5 bilaterally. From caudal cephalad fashion complete laminectomy of L4 was performed including bilateral medial facetectomies and foraminotomies addressing severe spinal stenosis as well as fragments of disc material occupying the L4 foramen on the left. After complete decompression pedicle screws were placed in L4-L5 bilaterally with assistance of fluoroscopy and the properly sized kristopher placed. By way of a trans foraminal approach on the left complete discectomy of L4-5 was performed endplates curetted to subcortically and bone and a 15 x 26 mm Spira cage with I factor tapped in position. The rods were then compressed locked in final position bilaterally. The transverse processes of L4 and L5 burred to subcortically bone. I factor amount of the test and locally harvested morselized autograft was placed in the posterior gutters. 15 round VAN drain inserted. The incision was then closed with 1 Vicryl to fascia 2-0 Vicryl subcutaneously and 4 Monocryl for final skin closure. Steri-Strips sterile dressing placed. Patient waken taken to PACU stable condition. Please note spinal cord monitoring was utilized at the procedure no changes noted. Lastly Vashti Amin was present at the entire surgeon while the patient positioning complex portion of the surgery and final skin closure. I attest to the content of the Intraoperative Record and any orders documented therein. Any exceptions are noted below.
[2023-06-09] MEDS: fentaNYL citrate PF 100 MCG/2 ML VIAL IV PRN ×4 (12:33→12:48)
--- NOTE | 2023-06-09 12:59 | Anesthesiology Progress Note ---
Date of Service June 09, 2023 Anesthesia Post Procedure Vital Signs Vital Signs: Temp Pulse Pulse Resp BP BP Pulse Ox 06/09/23 12:40 70 17 110/72 100 06/09/23 12:50 72 14 102/64 100 06/09/23 12:30 67 12 131/81 100 06/09/23 12:23 36.7 C 75 14 128/82 100 06/09/23 08:41 36.6 C 75 18 140/87 97 O2 Del Method O2 Flow Rate 06/09/23 12:40 Oxymask 4 06/09/23 12:50 Nasal Cannula 2 06/09/23 12:30 Oxymask 6 06/09/23 12:23 Oxymask 10 06/09/23 08:41 Room Air Pain Intensity Back: Pain Intensity: 6 Transfer of Care Handoff Completed per policy Notes Mental Status: alert / awake / arousable and participated in evaluation Patient Amnestic to Procedure: Yes Nausea / Vomiting: adequately controlled Pain: adequately controlled Airway Patency, RR, SpO2: stable & adequate BP & HR: stable & adequate Hydration State: stable & adequate Anesthetic Complications: no major complications apparent
--- NOTE | 2023-06-09 13:08 | Fluoroscopy Report ---
FL lumbar spine 2-3V CLINICAL HISTORY: L4-5 DECOMPRESSION AND FUSION COMPARISON STUDY: Lumbar spine MRI 04/05/2023. FLUOROSCOPY TIME: 17 seconds FLUOROSCOPY IMAGES: 2 Ka,r: 15.5 mGy FINDINGS: Posterior decompression and fusion at L4-L5 with pedicle screws and rods. The hardware appe ars intact. A disc spacer is in place. IMPRESSION: Fluoroscopic assistance as above. ACT 112: Negative or not required by law. Electronically signed by: Bird Motley M.D. 06/09/2023 1:07 PM
[2023-06-09] MEDS ORDERED: hydrOXYzine HCl 25 MG TAB PO PRN (13:47)
[2023-06-09] MEDS ORDERED: ACETAMINOPHEN 500 MG TAB PO PRN (13:47)
[2023-06-09] MEDS ORDERED: LORazepam 0.5 MG TAB PO PRN (13:47)
[2023-06-09] MEDS ORDERED: NALOXONE HCL 0.4 MG/1 ML VIAL/CARP IV PRN (13:47)
[2023-06-09] MEDS ORDERED: diphenhydrAMINE Capsule 25 MG CAP PO PRN (13:47)
[2023-06-09] MEDS ORDERED: METOCLOPRAMIDE HCL INJ 5 MG/ML 2 ML VIAL IV PRN (13:47)
[2023-06-09] MEDS ORDERED: FAMOTIDINE 20 MG TAB PO PRN (13:47)
[2023-06-09] MEDS ORDERED: HYDROmorphone INJ 0.5 MG/0.5 ML SYR IV PRN (13:47)
[2023-06-09] MEDS ORDERED: MAGNESIUM HYDROXIDE SUSP 30 ML UDC PO PRN (13:47)
[2023-06-09] MEDS ORDERED: HYDROmorphone INJ 1 MG/ML SYRINGE IV PRN (13:47)
[2023-06-09] MEDS ORDERED: bisacodyL 10 MG SUPP PR PRN (13:47)
[2023-06-09] MEDS ORDERED: ONDANSETRON 4 MG OD TAB PO PRN (13:47)
[2023-06-09] MEDS ORDERED: SOD PHOSPHATE/SOD BIPHOSPHATE ENEMA 132 ML BTL PR PRN (13:47)
[2023-06-09] MEDS ORDERED: ACETAMINOPHEN 1,000 MG/100 ML VIAL IV PRN (13:47)
[2023-06-09] MEDS ORDERED: LORazepam 2 MG/1 ML VIAL IV PRN (13:47)
[2023-06-09] MEDS ORDERED: DO NOT ADMINISTER PNEUMOCOCCAL VACCINE PRN (13:47)
[2023-06-09] MEDS ORDERED: DO NOT ADMINISTER FLU VACCINE PRN (13:47)
[2023-06-09] MEDS ORDERED: ALUMINUM/MAGNESIUM SUSP 30 ML UDC PO PRN (13:47)
[2023-06-09] MEDS: GABAPENTIN 300 MG CAP PO SCH ×2 (14:41→20:56)
[2023-06-09] MEDS: LACTATED RINGER'S 1,000 ML IV SCH ×2 (14:45→21:05)
[2023-06-09] MEDS ORDERED: tiZANidine HCL 4 MG TABLET PO PRN (15:45)
[2023-06-09] MEDS: oxyCODONE HCL IR 5 MG TAB (IMMEDIATE RELEASE) PO PRN ×2 (16:31→20:32)
[2023-06-09] MEDS: ceFAZolin 2000MG 2,000 MG/15 ML SYR IV SCH (18:37)
[2023-06-09] MEDS: DOCUSATE SODIUM/SENNA 50/8.6MG TAB PO SCH (20:56)
[2023-06-09] MEDS: traMADol HCL 50 MG TABLET PO PRN (23:40)
[2023-06-10] MEDS: ceFAZolin 2000MG 2,000 MG/15 ML SYR IV SCH (03:04)
[2023-06-10] MEDS: LACTATED RINGER'S 1,000 ML IV SCH (03:25)
[2023-06-10 06:16] LABS: Basophils # (auto) 0.02 K/uL (0-0.2); Basophils % (auto) 0.1 %; Eosinophils # (auto) 0.02 K/uL (0-0.50); Eosinophils % (auto) 0.1 %; Hematocrit (blood only) 36.1 % (42.0-52.0); Hemoglobin 12.5 g/dl (14.0-18.0); Immature Granulocytes # (auto) 0.09 K/uL (0.01-0.20); Immature Granulocytes % (auto) 0.6 %; Lymphocytes # (auto) 1.28 K/uL (1.2-3.4); Lymphocytes % (auto) 7.9 %; Mean Corpuscular Hemoglobin 31.6 pg (25.0-34.0); Mean Corpuscular Hgb Conc 34.6 g/dL (32.0-36.0); Mean Corpuscular Volume 91.2 fL (80.0-100.0); Mean Platelet Volume 11.2 fL (9.4-12.4); Monocytes # (auto) 1.42 K/uL (0.11-0.59); Monocytes % (auto) 8.8 %; Neutrophils % (auto) 82.5 %; Platelet Count 233 K/uL (130-400); RDW Coefficient of Variation 12.6 % (11.5-14.5); Red Blood Count 3.96 M/uL (4.70-6.10); White Blood Count 16.13 K/ul (4.8-10.8)
[2023-06-10 06:19] LABS: BUN Creatinine Ratio 8.6 (10-20); Calcium 8.9 mg/dl (8.6-10.3); Creatinine Clr Calc Pharmacy 113.5 ml/min; Est GFR (African American) 98.9 ml/min; Est GFR (Non-African American) 85.3 ml/min; Potassium 4.2 mmol/L (3.5-5.1)
[2023-06-10] MEDS: POLYETHYLENE (MIRALAX) 17 GM PACK PO SCH ×3 (06:26→18:42)
[2023-06-10] MEDS: traMADol HCL 50 MG TABLET PO PRN ×3 (06:33→21:10)
[2023-06-10] MEDS: GABAPENTIN 300 MG CAP PO SCH ×3 (08:17→21:09)
[2023-06-10] MEDS: dexAMETHasone 6 MG in SYRINGE 0 ML IV SCH (08:18)
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
--- NOTE | 2023-06-10 09:09 | Orthopedic Progress Note ---
Date of Service June 10, 2023 Assessment & Plan (1) Lumbar disc herniation with radiculopathy: Plan: This time continue physical therapy monitor his VAN operatively discharge over next few days. Admission and Anticipated Discharge Date Admission Date: June 09, 2023 Subjective Back pain controlled leg pain improved Physical Exam Physical Exam: Patient is in the chair at the bedside. He is comfortable. Is constricted testing. Results & Data Vital Signs (Past 12 Hours) Vital Signs Temp Pulse Pulse Resp BP BP Pulse Ox 06/10/23 07:24 36.8 C 69 16 107/70 98 06/10/23 02:45 36.7 C 80 16 137/80 94 06/09/23 23:32 36.3 C L 68 16 123/74 96 O2 Del Method 06/10/23 07:24 Room Air 06/10/23 02:45 Room Air 06/09/23 23:32 Room Air Queries Orthopedic Spine Obesity: Yes
[2023-06-10] MEDS: DOCUSATE SODIUM/SENNA 50/8.6MG TAB PO SCH (21:09)
[2023-06-10] MEDS: oxyCODONE HCL IR 5 MG TAB (IMMEDIATE RELEASE) PO PRN (23:51)
[2023-06-11 07:29] LABS: Hematocrit (blood only) 39.6 % (42.0-52.0); Hemoglobin 13.4 g/dl (14.0-18.0); Mean Corpuscular Hemoglobin 31.5 pg (25.0-34.0); Mean Corpuscular Hgb Conc 33.8 g/dL (32.0-36.0); Mean Corpuscular Volume 93.2 fL (80.0-100.0); Mean Platelet Volume 11.1 fL (9.4-12.4); Platelet Count 273 K/uL (130-400); RDW Coefficient of Variation 13.1 % (11.5-14.5); RDW Standard Deviation 44.7 fL (36.4-46.3); Red Blood Count 4.25 M/uL (4.70-6.10); White Blood Count 16.75 K/ul (4.8-10.8)
[2023-06-11] MEDS: GABAPENTIN 300 MG CAP PO SCH (07:54)
[2023-06-11] MEDS: dexAMETHasone 6 MG in SYRINGE 0 ML IV SCH (07:54)
[2023-06-11] MEDS: oxyCODONE HCL IR 5 MG TAB (IMMEDIATE RELEASE) PO PRN (08:03)
--- NOTE | 2023-06-11 09:55 | Discharge Summary ---
Date of Service June 11, 2023 Admission HPI Per Admitting Provider This is a 47-year-old male who presents with chronic persistent back and leg pain and failing course of nonoperative care is here for surgical invention. Principal Diagnosis Lumbar disc herniation with radiculopathy Discharge Data Allergies Allergy/AdvReac Type Severity Reaction Status Date / Time No Known Allergies Allergy Verified 06/09/23 08:39 Consultations 06/09/23 13:47 Consult Hospitalist Routine Procedures Performed Operation Date: 06/09/23 09:55 Actual Procedures p L4-L5 Decompression and Fusion, Spinal Cord Monitoring(Not Applicable) - Matty Acosta DO Ordered Studies 06/09/23 [place] lumbar spine 2-3V Routine Hospital Course (1) Lumbar disc herniation with radiculopathy: Patient underwent lumbar decompression fusion tolerated this well was taken orthopedic for postoperative. Postop day 1 is up and ambulating progressed to postop day #2. Leg pain improved back pain controlled VAN drain decreasing probably. Excellent strength testing. Simply discharged home. Discharge orders instructions from the chart for further review. Total Time Total Time Spent Total Time Spent (In Minutes): 20 minutes Discharge Plan Discharge Items Patient Disposition: Home - Self-Care Reason For Visit: Intervertebral Disc Disorders with Radiculopathy, Discharge Diagnosis: Lumbar spinal stenosis with radiculopathy Activity: As commented below Non-emergency contact: Primary Care Provider Call non-emergency contact if: you have any medication questions Follow-up/Referrals: Che Petersen CRNP [Primary Care Provider] - Diet: Regular Addtl Attending Provider Instructions: ACTIVITY RECOMMENDATIONS: SELF CARE INSTRUCTIONS AFTER THORACIC/LUMBAR FUSIONS 1. You may walk to your tolerance. It is good exercise for your legs and back. Expect some back and intermittent leg aches and pains. 2. You may perform "counter-top" level activities (make a sandwich, guy with a project, etc.). 3. No bending or lifting of more than 10 pounds or back twisting of any nature (roll like a log when turning in bed). 4. You may ride in a car for 20-30 minutes at a time. No driving until after your first visit with your doctor. 5. Frequent changes of position and restricting sitting to 30 minutes at a time will help limit the amount of back spasms and stiffness you may experience. 6. You may discontinue the use of ambulatory aids (cane, crutches, etc.) once your strength and confidence allow. 7. You may insurance sales agent the shower and let water strike your incision when you arrive home at least once daily. Do not take a tub bath, sit in a hot tub or go into a swimming pool until after your first recheck in the office. SPECIAL CARE INSTRUCTIONS: VERY IMPORTANT TO READ AND REVIEW A. Your surgical incision has been closed with a cosmetic suture under the skin that will dissolve in about 6 weeks. In 14 days, you can use a pair of clean scissors and cut the suture that is left outside of the skin at the ends of your incision. 1. The small skin tapes can be removed 7 days after surgery if they have not fallen off by that point. 2. You may keep the wound open to air as much as possible to promote healing after post-op day number 5 unless told otherwise by your doctor. 3. If you think the wound looks like it is becoming infected (redness or worsening drainage) and/or you are experiencing fever, chill or worsening back pain and muscle spasms, contact the office so that we may evaluate you as soon as possible. B. Complications are uncommon, but please contact us if you have any signs or symptoms of: 1. wound infection (fever higher than 102.5 degrees F, redness, separation of wound, drainage, or increasing pain from the incision) 2. blood clots in legs (pain, swelling, redness and warmth in legs) 3. urinary tract infection (fever higher than 102.5 degrees F, burning upon urination or increased frequency of urination) 4. nerve problems (inability to walk on your toes or heels, numbness, loss of bowel or bladder control) 5. any other symptoms that concern you C. Please call the office at if you have any concerns or questions about your operation or recovery. D. No smoking! Smoking drastically decreases the chance of a solid fusion. E. Do not take any anti-inflammatory medications (Indocin, Advil, Motrin, Aspirin, Naprosyn, etc.) as these may inhibit the chance of a solid fusion. Tylenol is okay to take for pain. MANAGING PAIN AFTER SPINAL SURGERY 1. Narcotic medication is intended for short-term use and will be provided for surgical pain. Surgical pain usually lasts for a period of 4-6 weeks. Narcotic medication includes Percocet, Vicodin, Darvocet, Tylenol #3 or Lortab. 2. Longer-term pain is more appropriately treated with non-narcotic medication such as Tylenol ES. 3. Muscle spasm is not appropriately treated with narcotics. Muscle relaxers such as Soma, Flexeril or Skelaxin can be used along with Tylenol ES. 4. Remember that we all live with some "aches and pains". This is not unusual or uncommon after an injury or as we get older. a. Back pain is expected and may include muscle spasms for 4 to 6 weeks after surgery. The pain should gradually improve. If the pain worsens for no apparent reason, please contact the office. b. Intermittent leg pain may also be experienced and should not be concerned about unless it worsens for no apparent reason. If so, please contact the office. 5. We will provide appropriate medication within the normal guidelines of their prescribed use. We will also be very cautious and aware of potential abuse and extended duration of patients' medication needs. a. Pain medications are for your comfort and to assist with sleep and rest so that the tissue can heal. They are not provided in order to return to normal activity and should not be used through the day. To do so or worsening pain at night can result from ongoing tissue damage and development of tolerance to the prescribed medicine. 6. Please allow 2-3 days to process refills. Prescriptions will not be mailed but must be picked up at the office. FOLLOW UP VISIT: Keep your scheduled follow-up appointment. Any questions, please call the office at . Pending Studies at Discharge: No Stand-Alone Forms: [facility] [email or web address], Smoking Cessation Medications and DC Order Prescriptions: New tramadol 50 mg tablet 50 mg PO Q6H PRN (Reason: pain, moderate) Qty: 30 0RF oxycodone 5 mg tablet 5 mg PO Q6H PRN (Reason: pain) Qty: 30 0RF Continued gabapentin 300 mg capsule 900 mg PO TID Qty: 180 0RF oxycodone 5 mg tablet 5 - 10 mg PO Q6H PRN (Reason: moderate pain (scale score 5-6)) Qty: 45 0RF Patient Comments: only takes to try and get some rest Rx Instructions: take 5 mg for moderate pain and 10 mg for severe pain tizanidine 4 mg tablet 4 mg PO Q6H PRN (Reason: MUSCLE SPASMS) sennosides-docusate sodium [Senokot-S] 8.6-50 mg Tablet 1 tab PO QAM PRN (Reason: constipation) Qty: 30 0RF lidocaine 5 % adhesive patch,medicated 1 patch topical DAILY PRN (Reason: Pain) Qty: 14 0RF Rx Instructions: leave on most painful area for up to 12 hrs acetaminophen 500 mg Tablet 1,000 mg PO Q6H PRN (Reason: Pain) Discharge Orders: Discharge Order (Routine); Ordered 06/11/23 Ordered By: Matty Acosta Admission Data Admit Date/Time: 06/09/23 12:10 Attending Provider: Matty Acosta Admit Provider: Matty Acosta Primary Care Provider: Che Petersen Other Providers: Dionisio Infante Marina M.
== END 2023-06-11 14:10 | disposition home or self-care (01) | DRG 455 ==
LOC: ASU 08:13 → 3E 12:10